=== PATIENT | male | born 1950 | race Caucasian/White ===

== ENCOUNTER 2016-12-23 21:08 | Emergency (ER) | payer OTHER ==
[2016-12-23 21:20] VITALS: BP 143/83
--- NOTE | 2016-12-23 22:07 | ED EYE COMPLAINT ---
History of Present Illness General Chief Complaint: Eye Problems Stated Complaint: ?FORIEGN BODY IN EYE Source: patient Exam Limitations: no limitations Vital Signs & Intake/Output Vital Signs & Intake/Output Vital Signs Date Time Temp Pulse Resp B/P Pulse O2 O2 Flow FiO2 Ox Delivery Rate 12/230 98.0 82 22 143/83 98 ED Intake and Output 12/24 0000 12/23 1200 Intake Total Output Total Balance Patient 191 lb Weight Allergies Coded Allergies: No Known Allergies (12/23/16) Reconcile Medications Polytrim (Polytrim Eye Drops) 10,000 UNIT-1 MG/ML DROPS 1 GTT OPH Q6 FB IN EYE Triage Note: PER PT ?FB TO RT EYE WHILE BARBEQUING TONIGHT, Triage Nurses Notes Reviewed? yes Onset: Abrupt Duration: constant Timing: single episode today Injury Environment: home Severity: moderate Severity Numbers: 2 Right Eye Associated Symptoms: foreign body sensation HPI: Patient is a 66-year-old male who presents emergency him stating that while barbecuing chicken today he noted acute onset of foreign body sensation to his right eye and has been persistent throughout the evening. Patient complains of only foreign body sensation does not complain of blurred vision discharge floater spots. Patient has unknown tetanus status (PATO MOSLEY) Past History Travel History Traveled to [place] past 21 day No Medical History Any Pertinent Medical History? see below for history Neurological: NONE EENT: NONE Cardiovascular: NONE Respiratory: NONE Gastrointestinal: NONE Hepatic: NONE Renal: NONE Musculoskeletal: NONE Psychiatric: NONE Endocrine: NIDDM Tetanus Vaccine: Surgical History Surgical History: non-contributory Psychosocial History What is your primary language Tristanian Tobacco Use: Never used Family History Hx Contributory? No (PATO MOSLEY) Review of Systems Review of Systems Constitutional: Reports: no symptoms. Eyes: Reports: see HPI, foreign body sensation, pain. Denies: blurred vision, decreased acuity, inflammation, photophobia, tunnel vision, contact lenses. Ear: Reports: no symptoms. Nose: Reports: no symptoms. Mouth: Reports: no symptoms. Throat: Reports: no symptoms. Respiratory: Reports: no symptoms. Cardiovascular: Reports: no symptoms. GI: Reports: no symptoms. Genitourinary: Reports: no symptoms. Musculoskeletal: Reports: no symptoms. Skin: Reports: no symptoms. Neurological/Psychological: Reports: no symptoms. Hematologic/Endocrine: Reports: no symptoms. Immunologic/Allergic: Reports: no symptoms. All Other Systems: Reviewed and Negative (PATO MOSLEY) Physical Exam General Appearance: well developed/nourished, no apparent distress, alert General Inspection: normal inspection Eyelid: normal inspection Conjunctiva/Sclera: normal inspection Cornea: normal inspection EOM: intact Pupil: normal accommodation, normal pupil, PERRL Anterior Chamber: normal inspection General Inspection: normal inspection Eyelid: normal inspection Conjunctiva/Sclera: normal inspection Cornea: examined w/fluorescein, fluorescein dye uptake EOM: intact Pupil: normal accommodation, normal pupil, PERRL Anterior Chamber: normal inspection Posterior Segments: normal funduscopic Eye Right 1) Well-defined circular 1 mm FLUOROSCEINE uptake noted Physical Exam Head: atraumatic Ears: Bilateral: canal normal. Nose: normal inspection Mouth/Throat: normal mouth inspection Neck: normal inspection Cardiovascular/Respiratory: normal breath sounds, normal peripheral pulses Neurologic/Psych: no motor/sensory deficits, awake, alert, oriented x 3, normal gait Skin: intact, normal color, warm/dry (PATO MOSLEY) Progress Differential Diagnosis: corneal abrasion, corneal foreign body, conjunctivitis, detached retina, glaucoma, globe rupture, retinal art./v. occlusion Plan of Care: Initially I used local anesthesia of tetracaine drops which patient had complete resolution of foreign body sensation. There was noted uptake of staining which is most likely suspecting of a foreign body I used wet cotton swab administration to the foreign body and tried to remove this unsuccessfully. Patient was strongly advised to follow-up with ophthalmology as instructed and discharge plan and he will comply. Tetanus was updated. Patient will prophylactically be administered antibiotic drops. (PATO MOSLEY) Departure Departure Disposition: HOME OR SELF CARE Condition: Stable Clinical Impression Primary Impression: Foreign body of right eye Referrals: FADY GAGE,ATA Metcalf (PCP/Family) KYA GAGE,BREANA Newman Additional Instructions: As discussed begin [id number] ibuprofen for pain and inflammation. Begin the prescription of Polytrim as directed to prevent infection. 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 Martinez for further evaluation treatment. If symptoms worsen return to emergency room. Prescriptions are waiting at [facility] pharmacy Departure Forms: Customer Survey General Discharge Information Prescriptions: Current Visit Scripts Polytrim (Polytrim Eye Drops) 1 GTT OPH Q6 #10 ML (PATO MOSLEY) PA/BODYWORK THERAPIST Co-Sign Statement Statement: ED Attending supervision documentation- [] I saw and evaluated the patient. I have also reviewed all the pertinent lab results and diagnostic results. I agree with the findings and the plan of care as documented in the PA's/BODYWORK THERAPIST's documentation. [x] I have reviewed the ED Record and agree with the PA's/BODYWORK THERAPIST's documentation. [] Additions or exceptions (if any) to the PAs/BODYWORK THERAPIST's note and plan are summarized below: [] (SANTOS GAGE,MASON Fall)
[2016-12-23] MEDS ORDERED: POLYTRIM EYE DR10 ML OPH (22:19)
== END 2016-12-23 22:30 ==
LOC: ERH 21:08
DX: T15.91XA Foreign body on external eye, part unspecified, right eye, initial encounter (principal)
CPT/HCPCS: 90471; 90714